=== PATIENT | female | born 1980 | race Caucasian/White ===

== ENCOUNTER 2024-05-25 09:04 | Emergency (ER) | payer BC, SELFPAY ==
--- NOTE | ~2024-05-25 | XR_ITS ---
Right Hand Technique: PA, oblique, and lateral views were obtained. Clinical History: Injury Findings: There is acute, oblique, intra-articular fracture at the radial aspect of the base the fift h proximal phalanx, mildly displaced. No other fracture or dislocation seen.. Joint spaces are preser lupillo. Soft tissues are unremarkable. Impression: Intra-articular fracture at the base of the fifth proximal phalanx, as detailed above. Reviewed, dictated and finalized at location [facility] [employer] Impression: Intra-articular fracture at the base of the fifth proximal phalanx, as detailed above.
[2024-05-25 09:21] VITALS: BP 110/76; PULSE 65; RESP 16; TEMP 36.6; O2SAT 100
--- NOTE | 2024-05-25 09:24 | ED.UPPEXIN ---
HPI - Extremity Injury (Upper) General Chief Complaint: Extremity Injury, Upper Stated Complaint: Right hand little finger injury Source: patient Mode of arrival: ambulatory Limitations: no limitations History of Present Illness HPI narrative: 43 y/o female presented with c/o right hand little finger pain after injury last night. States she trpped while walking up the stairs and struck the hand on the wall. Endorses decreased ROM of the digit, swelling and bruising. Has not needed anything for pain. Denies numbness, tingling or new deformity. Related Data Home Medications Medication Instructions Recorded Confirmed albuterol sulfate 90 mcg/actuation 2 puff inhalation PRN PRN Wheezing 05/25/24 05/25/24 aerosol inhaler dextroamphetamine-amphetamine 15 15 mg PO BID 05/25/24 05/25/24 mg tablet oxycodone-acetaminophen 7.5 mg-325 1 tablet PO PRN PRN Pain 05/25/24 05/25/24 mg tablet sertraline 100 mg tablet 100 mg PO DAILY 05/25/24 05/25/24 Allergies Allergy/AdvReac Type Severity Reaction Status Date / Time Penicillins Allergy Unknown Verified 05/25/24 09:26 Review of Systems Review of Systems: CONSTITUTIONAL: Denies body aches, fever, chills CARDIOVASCULAR: Denies chest pain, palpitations, or edema. RESPIRATORY: Denies cough or dyspnea. SKIN: Denies wounds. MUSCULOSKELETAL: Reports right hand little finger pain NEUROLOGIC: Denies numbness, tingling, or weakness. All systems reviewed & are unremarkable except as noted in HPI and below PMFSH Comments At time of signature, I have reviewed and agree with nursing past medical, surgical, social and family history unless otherwise noted. Please see nursing chart for further information. There is no relevant family history pertinent to the presenting complaint Exam Narrative: GENERAL: Well-appearing CHEST: Speaks in full sentences. No respiratory distress. HEART: Regular rate and rhythm. Normal and equal peripheral pulses. EXTREMITIES: Right hand has normal strength and sensation, decreased range of motion at 5th MCP due to pain with movement. Mild swelling and ecchymosis to MCP palmar aspect with point tenderness. No open wounds. deviation of the 5th digit towards ulna which she says is chronic due to previous fracture. pulse palpable and equal bilaterally, skin warm, dry, pink. Capillary refill less than 3 seconds. SKIN: Warm, dry, no rash. NEURO: Alert and oriented x3. PSYCH: Normal mood and affect Course Course Emergency Course: Patient is aware of diagnosis, understands and agrees to treatment plan. Anticipatory guidance given. Patient agrees to follow-up as directed and is aware of reasons to seek care at the emergency department. Portions of this record may have been created with voice recognition software Level of Care: Express Care Visit Vital Signs Vital signs: Vital Signs Temperature 97.8 F 05/25/24 09:21 Pulse Rate 65 05/25/24 09:21 Respiratory Rate 16 05/25/24 09:21 Blood Pressure 110/76 05/25/24 09:21 Pulse Oximetry 100 05/25/24 09:21 Temperature 97.8 F 05/25/24 09:21 Pulse Rate 65 05/25/24 09:21 Respiratory Rate 16 05/25/24 09:21 Blood Pressure 110/76 05/25/24 09:21 Pulse Oximetry 100 05/25/24 09:21 Reviewed MDM - Extremity Injury (Upper) MDM Narrative Medical decision making narrative: Discussed physical exam findings and xray. Metal finger splint applied. Advised supportive measures and signs/symptoms to go to the ER. Pt is appropriate for outpt treatment and f/u. Differential Diagnosis Differential diagnosis: Likely finger sprain, dislocation of finger, fracture of hand and other (finger fracture) Imaging Data Radiologist's impression: Patient: Simona Young : 1980 MR#: [id number] Age: 43 Acct:[id number] Loc: [facility] ADM Date: 05/25/24Attending Dr: Ordering Physician: Betsey Paige APRN Date of Service: 05/25/24 Procedure(s): XR hand RT min 3V Accession Number(s): [id number] cc: Betsey Paige APRN~ Right Hand Technique: PA, oblique, and lateral views were obtained. Clinical History: Injury Findings: There is acute, oblique, intra-articular fracture at the radial aspect of the base the fifth proximal phalanx, mildly displaced. No other fracture or dislocation seen.. Joint spaces are preserved. Soft tissues are unremarkable. Impression: Intra-articular fracture at the base of the fifth proximal phalanx, as detailed above. Discharge Plan Discharge Clinical Impression: Finger fracture, right Patient Disposition: Home, Self-Care Condition: Stable Instructions: Finger Fracture (ED) Additional Instructions: Rest, ice and elevate the right hand Motrin 600mg every 8 hours, as needed, for pain (take with food). Tylenol 1000mg every 8 hours. Keep splint clean, dry and in place until cleared by specialist. No lifting, pushing, pulling etc until cleared by specialist. Go to the ER immediately for increased pain, tingling/numbness, swelling, redness, etc Follow up with Hand surgeon in 2 days for further evaluation - please call today for an appointment. Prescriptions: No Action sertraline 100 mg tablet 100 mg PO DAILY dextroamphetamine-amphetamine 15 mg tablet 15 mg PO BID oxycodone-acetaminophen 7.5-325 mg tablet 1 tablet PO PRN PRN (Reason: Pain) albuterol sulfate 90 mcg/actuation HFA aerosol inhaler 2 puff INHALATION PRN PRN (Reason: Wheezing) Follow-up/Referrals: Chivo Ojeda MD [Physician] - (acute, oblique, intra-articular fracture at the radial aspect of the base the fifth proximal phalanx, mildly displaced. ) PHYSICIAN NOT ON STAFF,NONSTAFF [Primary Care Provider] - Time of Disposition: 10:01
--- NOTE | 2024-05-25 10:16 | PC.NURSE ---
+PMS POST SPLINT APPLICATION
== END 2024-05-25 10:08 | disposition home or self-care (01) ==
PROVIDERS: Emergency Provider Nurse Practitioner Family
DX: S62.616A Displaced fracture of proximal phalanx of right little finger, initial encounter for closed fracture (principal); W10.9XXA Fall (on) (from) unspecified stairs and steps, initial encounter; J45.909 Unspecified asthma, uncomplicated; F98.8 Other specified behavioral and emotional disorders with onset usually occurring in childhood and adolescence
CPT/HCPCS: 29130; 73130; 99204; G0463